=== PATIENT | female | born 1955 | race Caucasian/White ===

== ENCOUNTER 2016-12-04 16:28 | Emergency (ER) | payer OTHER ==
[~2016-12-04] VITALS: Ht 157.5 cm; Wt 59.0 kg
[2016-12-04 16:28] VITALS: BP_SYST 128
--- NOTE | 2016-12-04 16:28 | NUR ---
BIB [facility] BLS from [facility] in [place]. Placed in bed 1
--- NOTE | 2016-12-04 16:30 | NUR ---
Dr. Keita at bedside for evaluation
[2016-12-04] MEDS ORDERED: HALOPERIDOL LACTATE 5 MG/ML VIAL IM ONE (16:45)
[2016-12-04] MEDS ORDERED: DIAZEPAM 10 MG/2 ML DISP.SYRIN IM ONE (16:45)
[2016-12-04] MEDS ORDERED: DIPHENHYDRAMINE INJ 50 MG/ML VIAL IM ONE ×2 (16:45→17:45)
[2016-12-04] MEDS ORDERED: GLU850 PO (16:53)
[2016-12-04] MEDS ORDERED: DOCU-144 PO (16:53)
[2016-12-04] MEDS ORDERED: OLAN20TA17 PO (16:53)
[2016-12-04] MEDS ORDERED: LISI40TA4 PO (16:53)
[2016-12-04] MEDS ORDERED: GUAI120L24 PO (16:53)
[2016-12-04] MEDS ORDERED: ASPI-1063 PO (16:53)
[2016-12-04] MEDS ORDERED: ACET325T53 PO (16:53)
[2016-12-04] MEDS ORDERED: SSREG SUBCUT (16:53)
[2016-12-04] MEDS ORDERED: HYDR-4100 PO (16:53)
[2016-12-04] MEDS ORDERED: LORA-258 PO (16:53)
[2016-12-04] MEDS ORDERED: METO50TA7 PO (16:53)
[2016-12-04] MEDS ORDERED: LEVO50TA8 PO (16:53)
[2016-12-04] MEDS ORDERED: NOR10 PO (16:53)
[2016-12-04] MEDS ORDERED: DULO60CA41 PO (16:53)
[2016-12-04] MEDS ORDERED: LIP20 PO (16:53)
--- NOTE | 2016-12-04 16:53 | NUR ---
Medication reconciliation completed with information provided by [facility]. Any prior medication reconciliation on file was reviewed and corrected.
--- NOTE | 2016-12-04 16:56 | NUR ---
Patient to ED via EMT's with c/o pain after non-syncopal fall from wheelchair. Awaiting CT scan and dispo
--- NOTE | 2016-12-04 18:49 | NUR ---
Patient to and from CT scan in stable condition. Patient resting quietly in nad, awaiting CT results and dispo
--- NOTE | 2016-12-04 19:00 | NUR ---
Pt stable, resting. No signs of distress noted, vital signs within therapeutic range. Will continue to monitor pt.
--- NOTE | 2016-12-04 20:00 | NUR ---
Traci deleon in ED - 12/04/16 at 2049 by SDEDEJ Transport back to [place] facility via ambulace to arrive for patient pickup. ETA 2129.
--- NOTE | 2016-12-04 20:00 | NUR ---
Transport back to [facility] via ambulance will arrive for patient pickup. ETA 2129.
--- NOTE | 2016-12-04 20:43 | NUR ---
Note undone in [facility] - 12/04/16 at 2049 by SDEDGB Pt sts "I'm feeling anxious. I want to get up and go." VS remains stable. Md at bedside to re-evaluate. Addendum: 12/04/16 at 2048 by SDEDGB Amendment undone in [facility] - 12/04/16 at 2049 by SDEDGB WRONG PT
[2016-12-04 21:30] VITALS: BP_SYST 118
--- NOTE | 2016-12-04 21:30 | NUR ---
Note undone in ED - 12/04/16 at 2142 by SDEDEJ Patient given written and verbal discharge instructions and verbalizes understanding. ER MD discussed with patient the results and treatment provided. Patient in stable condition. ID arm band removed. Rx of Motrin given. Patient educated on pain management and to follow up with PMD. Pain Scale 0/10. Opportunity for questions provided and answered. Transported to [facility] via [facility] with [facility].
--- NOTE | 2016-12-04 21:30 | NUR ---
Patient given written and verbal discharge instructions. Pt unable to verbalize understanding at this time because she was sleeping and has Hx of psychosis. Education given to dining car waiter/waitress and discharge papers given to patient. Patient in stable condition. ID arm band removed. Rx of Motrin given. Patient educated on pain management and to follow up with PMD. Pain Scale 0/10. Opportunity for questions provided and answered. Transported to [facility] via [facility] with [facility].
== END 2016-12-04 21:30 | disposition home or self-care (01) ==
LOC: SED 16:28
DX: M25.551 Pain in right hip (principal); R51 Headache; Z79.899 Other long term (current) drug therapy; W07.XXXA Fall from chair, initial encounter; Y93.89 Activity, other specified; Y92.89 Other specified places as the place of occurrence of the external cause; Y99.8 Other external cause status
CPT/HCPCS: 70450; 72192; 96372; 99284; J1200; J1630; J3360; J7030